=== PATIENT | male | born 1955 | race African-American/Black ===

== ENCOUNTER 2018-07-06 16:17 | Emergency (ER) | payer MEDICAID ==
[~2018-07-06] VITALS: Ht 175.3 cm; Wt 90.0 kg
[2018-07-06] MEDS ORDERED: THIAMINE HCL 100MG TABLET PO ONE (18:45)
[2018-07-07] MEDS ORDERED: THIAMINE HCL 100MG TABLET PO SCH (04:31)
[2018-07-07 09:30] VITALS: BP 155/76
== END 2018-07-07 09:30 | disposition home or self-care (01) ==
LOC: ER 16:17 → EDBD 16:17 → ER 07-07 09:30
DX: F10.229 Alcohol dependence with intoxication, unspecified (principal); Y90.9 Presence of alcohol in blood, level not specified
CPT/HCPCS: 82962; 93005; 99284

== ENCOUNTER 2018-12-28 10:04 | Emergency (ER) | payer MEDICAID ==
[~2018-12-28] VITALS: Ht 172.7 cm; Wt 80.0 kg
[2018-12-28 12:13] VITALS: BP 121/72
== END 2018-12-28 12:25 | disposition left against medical advice (07) ==
LOC: ER 10:04
DX: F10.129 Alcohol abuse with intoxication, unspecified (principal); Y90.9 Presence of alcohol in blood, level not specified
CPT/HCPCS: 99284

== ENCOUNTER 2018-12-28 17:55 | Emergency (ER) | payer MEDICAID ==
[~2018-12-28] VITALS: Ht 175.3 cm; Wt 75.0 kg
[2018-12-28 19:20] VITALS: BP 179/85
[2018-12-28] MEDS ORDERED: CHLORDIAZEPOXIDE 25MG CAPSULE PO ONE (20:45)
== END 2018-12-30 08:38 | disposition left against medical advice (07) ==
LOC: ER 17:55
DX: T51.0X1A Toxic effect of ethanol, accidental (unintentional), initial encounter (principal); Y90.8 Blood alcohol level of 240 mg/100 ml or more; Y92.018 Other place in single-family (private) house as the place of occurrence of the external cause
CPT/HCPCS: 36415; 80320; 99283; G0480